=== PATIENT | female | born 1995 | race Caucasian/White ===

== ENCOUNTER 2021-05-08 09:41 | Outpatient (REF) | payer OTHER, SELFPAY ==
[2021-05-08 11:58] LABS: Hemoglobin 13.3 g/dl (12.0-16.0); Mean Corpuscular HGB Conc 32.4 g/dl (31.0-35.0); Mean Corpuscular Volume 89.3 fL (80-98); Mean Platelet Volume 12.5 fL (9.4-12.3); Platelet Count 216 X10*3/uL (160-400); Red Blood Count 4.59 X10*6/uL (4.20-5.50); Red Cell Distribution Width 13.3 % (11.0-16.0); White Blood Count 6.6 X10*3/uL (4.8-10.8)
[2021-05-08 12:24] LABS: Glucose Urine UA NEG (NEG); Leukocyte Esterase Urine NEG (NEG); Nitrite Urine NEG (NEG); Specific Gravity - Urine >= 1.030 (1.005-1.025); Urine Blood NEG (NEG); Urine Ketones NEG (NEG); Urine Protein NEG (NEG-TRACE)
[2021-05-08 12:27] LABS: Alanine Aminotransferase 30 U/L (0-31); Albumin Level 4.4 g/dL (3.5-5.0); Alkaline Phosphatase 50 U/L (39-117); Anion Gap 10 (12-20); Aspartate Amino Transferase 19 U/L (5-31); Bilirubin Total 0.5 mg/dL (0.0-1.0); Blood Urea Nitrogen 9 mg/dL (9-16); Calcium 9.5 mg/dL (8.4-10.2); Carbon Dioxide 26 mmol/L (22-29); Chloride 109 mmol/L (96-108); Cholesterol 172 mg/dL; Estimated Glomerular Filt Rate > 60; Glucose Fasting 91 mg/dL (60-99); HDL Cholesterol 46 mg/dL; LDL Cholesterol Calculated 113 mg/dl; Potassium 4.4 mmol/L (3.3-5.1); Sodium 141 mmol/L (135-145); Total Protein 7.2 g/dL (6.5-8.0); Triglycerides 68 mg/dL
[2021-05-08 12:29] LABS: Appearance Urine CLEAR; Color Urine YELLOW
[2021-05-08 12:37] LABS: RBC Urine 0 /HPF (0); Squamous Epithelial Cell Urine 1+ /LPF; WBC Urine 0-2 /HPF (0-4)
[2021-05-08 12:38] LABS: Mucus Urine TRACE /LPF
[2021-05-08 12:46] LABS: Syphilis Screen Nonreactive (Nonreactive)
[2021-05-09 11:33] LABS: CT PCR NOT DETECTED (Not Detect.); NG PCR NOT DETECTED (Not Detect.)
[2021-05-11 08:03] LABS: HBc Num1 0.09 S/CO (0.00-0.79); Hepatitis B Core Antibody Nonreactive (Nonreactive); ~HepC Num1 0.12 S/CO (0.00-0.79); ~Hepatitis C Antibody Nonreactive (Nonreactive)
[2021-05-11 08:26] LABS: HIV AB/AG Nonreactive (Nonreactive); HIV Num 1 0.08 S/CO (0.00-0.99)
[2021-05-13 20:47] LABS: HPV 16 RNA NOT DETECTED (NOT DETECTED); HPV mRNA E6/E7 rflx Detected (Not Detected)
== END 2021-05-08 09:42 | disposition home or self-care (01) ==
LOC: HO.LAB 09:41
PROVIDERS: PCP Internal Medicine; Visit Provider Advanced Practice Midwife
DX: Z01.411 Encounter for gynecological examination (general) (routine) with abnormal findings (principal); Z11.3 Encounter for screening for infections with a predominantly sexual mode of transmission; Z11.51 Encounter for screening for human papillomavirus (HPV); Z11.4 Encounter for screening for human immunodeficiency virus [HIV]; Z01.84 Encounter for antibody response examination; Z11.59 Encounter for screening for other viral diseases; R87.619 Unspecified abnormal cytological findings in specimens from cervix uteri; Z20.2 Contact with and (suspected) exposure to infections with a predominantly sexual mode of transmission
CPT/HCPCS: 36415; 80053; 80061; 81001; 85027; 86704; 86780; 86803; 87389; 87491; 87591; 87624; 87625; 88142

== ENCOUNTER → 2021-06-11 14:35 | Outpatient (BNVA) | payer OTHER, SELFPAY | PROVIDERS: PCP Internal Medicine; Visit Provider Obstetrics & Gynecology | DX: R87.610 Atypical squamous cells of undetermined significance on cytologic smear of cervix (ASC-US) (principal) | CPT/HCPCS: 57454 ==

== ENCOUNTER → 2021-06-24 13:54 | Outpatient (BNVA) | payer OTHER, SELFPAY | PROVIDERS: PCP Internal Medicine; Visit Provider Obstetrics & Gynecology | DX: N87.0 Mild cervical dysplasia (principal) | CPT/HCPCS: 99212 ==

== ENCOUNTER 2021-08-27 13:00 | Outpatient (RCR) | payer OTHER, SELFPAY ==
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
--- NOTE | 2021-08-28 08:03 | MHC.PT.DC ---
[facility] [place] [facility] [place] [facility] [place] Office [address] Shannon Vergara [address] [phone] F: [phone] F: [phone] F: [phone] F: [phone] Physical Therapy Discharge Report Diagnosis: This is a 26 yo female presenting to skilled PT with a script for cervicalgia. Date of Surgery: NA Date of Evaluation: 05/26/21 Date of Discharge: 08/27/21 Treatments to Date: 18 Cancellations to Date: 0 No Shows to Date: 0 Discharge Status: Achieved Goals Improved Function Independent with HEP Discharge Summary: 08/27: Patient demos normal ROM and strength. She has improved her pain and centralized symptoms. She is very compliant with HEP and has progressed band strength. She has ordered a tens unit for home use. She is I in her program and ready for DC. DC to HEP at this time. Electronically signed by: Neli Coffey PT Please sign and return to therapist. Thank you for your referral.
== END 2021-08-28 08:04 | disposition home or self-care (01) ==
LOC: HO.PTCHIC 13:00
PROVIDERS: PCP Internal Medicine; Visit Provider Internal Medicine
DX: M54.2 Cervicalgia (principal); M54.50 Low back pain, unspecified; G89.29 Other chronic pain
CPT/HCPCS: 88305; 97014; 97110; 97140; 97161; 97162

== ENCOUNTER 2021-09-26 10:19 | Outpatient (REF) | payer OTHER, SELFPAY ==
[2021-09-28 17:02] LABS: Rubeola IgG (Measles) >300.00 AU/mL
[2021-09-28 21:36] LABS: Rubella IgG Antibody 7.51 Index
== END 2021-09-26 10:20 | disposition home or self-care (01) ==
LOC: HO.LAB 10:19
PROVIDERS: PCP Internal Medicine; Visit Provider Internal Medicine
DX: Z00.00 Encounter for general adult medical examination without abnormal findings (principal)
CPT/HCPCS: 36415; 86735; 86762; 86765; 86787

== ENCOUNTER 2021-10-01 14:08 | Outpatient (REF) | payer OTHER, SELFPAY | END 2021-10-01 14:09 | disposition home or self-care (01) | LOC: HO.LAB 14:08 | PROVIDERS: PCP Internal Medicine; Visit Provider Internal Medicine | DX: Z13.89 Encounter for screening for other disorder (principal) ==

== ENCOUNTER 2021-10-08 11:44 | Outpatient (REF) | payer OTHER, SELFPAY | END 2021-10-08 11:45 | disposition home or self-care (01) | LOC: HO.LAB 11:44 | PROVIDERS: PCP Internal Medicine; Visit Provider Internal Medicine | DX: Z13.89 Encounter for screening for other disorder (principal) ==

== ENCOUNTER 2022-05-11 13:29 | Outpatient (REF) | payer OTHER, SELFPAY ==
[2022-05-11 17:42] LABS: CT PCR NOT DETECTED (Not Detect.); NG PCR NOT DETECTED (Not Detect.)
[2022-05-12 05:34] LABS: HBc Num1 0.09 S/CO (0.00-0.79); HIV AB/AG Nonreactive (Nonreactive); HIV Num 1 0.06 S/CO (0.00-0.99); Hepatitis B Core Antibody Nonreactive (Nonreactive); ~HepC Num1 0.05 S/CO (0.00-0.79); ~Hepatitis C Antibody Nonreactive (Nonreactive)
[2022-05-12 06:00] LABS: Syphilis Screen Nonreactive (Nonreactive)
[2022-05-17 22:46] LABS: HPV 16 RNA NOT DETECTED (NOT DETECTED); HPV mRNA E6/E7 rflx Detected (Not Detected)
== END 2022-05-11 13:30 | disposition home or self-care (01) ==
LOC: HO.LAB 13:29
PROVIDERS: PCP Internal Medicine; Visit Provider Advanced Practice Midwife
DX: Z01.411 Encounter for gynecological examination (general) (routine) with abnormal findings (principal); Z11.51 Encounter for screening for human papillomavirus (HPV); Z11.4 Encounter for screening for human immunodeficiency virus [HIV]; R87.610 Atypical squamous cells of undetermined significance on cytologic smear of cervix (ASC-US); Z20.2 Contact with and (suspected) exposure to infections with a predominantly sexual mode of transmission
CPT/HCPCS: 36415; 86704; 86780; 86803; 87389; 87491; 87591; 87624; 87625; 88142

== ENCOUNTER 2025-08-27 15:41 | Outpatient (AMB) | payer OTHER, SELFPAY ==
--- NOTE | 2025-08-27 14:56 | MHC.PC.OV ---
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 Cost Required: No Accompanied by: Spouse Allergies amoxicillin (AMOXICILLIN) Allergy (Intermediate, Verified 08/27/25 14:56) hives Tobacco use date assessed: 08/27/25 Dental Screening Dental Screen Date: 08/27/25 Did you have a dental visit in the last 12 months?: Yes Did you have a dental problem in the last 6 months where you did not have access to dental care?: No Was dental information given to patient?: Patient has dentist HPI HPI Comments History of Present Illness Details The patient is a 30-year-old female presenting for an annual physical examination and to discuss hand and wrist numbness. The patient reports numbness in her hands and wrists, which began in 2020 when she started working from home and typing constantly. The numbness primarily affects her thumb and two adjacent fingers, with the sensation running up to her elbow. She notes symptoms are worse before bed and when texting. The patient meets the criteria for mild depression, with a PHQ-4 score of 4, and mild anxiety. She is currently receiving therapy and has a history of taking sertraline for depression and prazosin for nightmares, but is not currently on these medications. Additionally, the patient has experienced weight fluctuations since having her daughter, with periods of losing 5 to 10 pounds rapidly and then regaining it. She was previously on control but discontinued it after losing her health insurance. The patient has no other known medical conditions and has never had surgery. Her family history is positive for breast cancer in her maternal aunt and diabetes on her father's side. She uses cannabis recreationally and drinks alcohol on social occasions about one to two times a month. She denies current cigarette use but smoked in high school about 10 years ago. Medical History: - Mild depression, with a PHQ-4 score of 4. - Mild anxiety. - History of depression previously treated with sertraline. - History of nightmares previously treated with prazosin. - Recent common cold with sinus and chest issues. Surgical History: - No history of surgeries. Medications: - The patient is not currently taking any medications. - Past use of sertraline for depression and prazosin for nightmares. Family History: - Maternal aunt with breast cancer. - Diabetes on father's side. Diagnostic Results: - PHQ-4 score of 4, indicating mild depression. Social History: - Occupation: Works from home and is constantly typing on a computer. - Substance Use: Uses cannabis recreationally. - Alcohol Use: Drinks socially one to two times per month, consuming one or two drinks per occasion. - Tobacco Use: Denies current use; smoked in high school approximately 10 years ago. - Housing: Reports having a safe and comfortable place to stay. - Diet: Typically eats breakfast and dinner with snacks in between, but does not eat lunch. PENDING SALE TO [facility] Medical History (Updated 08/27/25 @ 16:01 by Franck Bourgeois MD) Depression with anxiety Hand numbness Annual physical exam Obesity (BMI 30-39.9) Abnormal Pap smear of cervix Neck pain Chronic bilateral low back pain Family History Father No problems noted. 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 1. Little interest or pleasure in doing things: several days 2. Feeling down, depressed, or hopeless: several days 3. Trouble falling or staying asleep, or sleeping too much: not at all 4. Feeling tired or having little energy: several days 5. Poor appetite or overeating: not at all 6. Feeling bad about yourself - or that you are a failure or have let yourself or your family down: several days 7. Trouble concentrating on things, such as reading the newspaper or watching television: not at all 8. Moving or speaking so slowly that other people could have noticed. Or the opposite - being so fidgety or restless that you have been moving around a lot more than usual: not at all 9. Thoughts that you would be better off or of hurting yourself in some way: not at all Total score: 4 Depression Screening Interpretation: Positive Depression Screening Done: Yes 53885 - PHQ-9 Billing: Yes Source: Developed by Drs. Brenden Hamilton, Trini Castillo, Jayy Hines and colleagues, with an educational blaze from [employer]. Thrive Questionnaire Date Thrive assessed: 05/05/21 AUDIT C Alcohol Use Questionnaire (AUDIT-C) 1. How often do you have a drink containing alcohol?: 2-4 times a month 2. How many drinks containing alcohol do you have on a typical day when you are drinking?: 1 or 2 3. How often do you have six or more drinks on one occasion?: Never Total Score: 2 Score Reviewed/Action Taken: Yes MIRIAM-7 AMB Questionnaire MIRIAM-7 Date MIRIAM - 7 assessed: 08/27/25 Feeling nervous, anxious, or on edge: 1 = Several days Not being able to stop or control worryin = Several days Worrying too much about different things: 1 = Several days Trouble relaxin = Several days Being so restless that it is hard to sit still: 0 = Not at all Becoming easily annoyed or irritable: 1 = Several days Feeling afraid as if something awful might happen: 0 = Not at all Total MIRIAM-7 score (0-4 normal; 5-9 mild; 10-14 moderate; 15-21 severe): 5 Source: Developed by Drs. Brenden Hamilton, Trini Castillo, Jayy Hines and colleagues, with an educational blaze from [employer]. MIRIAM-7 Assessment Billing MIRIAM-7 Assessment Tool: MIRIAM-7 Assessment 34959 Review of Systems Narrative - Gastrointestinal: Reports nausea upon waking recently, which she attributes to her menstrual cycle starting today. - Denies vomiting. - Reports normal urination and defecation. - Neurological: Reports numbness in her thumb and two fingers that radiates to the elbow. - Denies headaches or vision changes. - Respiratory: Reports resolving sinus and chest issues from a recent cold. - Denies shortness of breath. - Cardiovascular: Denies chest pain. All systems reviewed & are unremarkable except as reviewed in HPI and above Physical exam (Primary Care) Vital Signs: Last Vital Signs Temp 97.8 F 08/27/25 15:47 Pulse 79 08/27/25 15:47 Resp 18 08/27/25 15:47 BP 110/72 08/27/25 15:47 Pulse Ox 97 08/27/25 15:47 Oxygen Delivery Method Room Air 08/27/25 15:47 BMI result Body Mass Index 35.6 Tobacco/Smoking Status: Tobacco use Status Tobacco use date assessed 08/27/25 08/27/25 15:49 Patient Tobacco Use Status Former Tobacco user 08/27/25 15:49 e-Cigarette/Vaping Use Never Used 08/27/25 15:49 PHQ-9: PHQ-9 Score PHQ-9: Total score 4 08/27/25 15:54 Depression Screening Interpretation: Positive Thrive Assessment: Date of Thrive Assessment Date Thrive assessed 05/05/21 08/27/25 14:57 Narrative General: Alert and oriented, Well nourished, No acute distress. Eye: Pupils are equal, round and reactive to light, Intact accommodation, Extraocular movements are intact, Normal conjunctiva, Vision unchanged. HENT: Normocephalic, Atraumatic, Tympanic membranes are clear, Normal hearing, Oral mucosa is moist, No pharyngeal erythema, Ear canals patent. Respiratory: Lungs CTA bilaterally, No wheeze, Respirations are non-labored. Cardiovascular: Regular rate, Regular rhythm, S1 auscultated, S2 auscultated, No murmur, Good pulses equal in all extremities, Normal peripheral perfusion, No edema. Gastrointestinal: Soft, Non-tender, Non-distended, Normal bowel sounds, No organomegaly. Musculoskeletal: Normal range of motion, Normal strength, No tenderness, No swelling, No deformity, Normal gait. Integumentary: Warm, Dry, [place], Intact. Neurologic: Alert, Oriented, Normal sensory, Normal motor function, No focal defects, Cranial Nerves II-XII are grossly intact, Normal deep tendon reflexes. Psychiatric: Cooperative, Appropriate mood & affect, Normal judgment. Mild depression and mild anxiety noted. Coding Level of Care Code New Pt Level 3 (76179) New Pt Prev Care 18-39yr(85181 Diagnoses Hand numbness R20.0 Depression with anxiety F41.8 Annual physical exam Z00.00 Additional Codes MIRIAM-7 Assessment Billing - MIRIAM-7 Assessment Tool: MIRIAM-7 Assessment 69967 ([id number]) PHQ-9 - 36228 - PHQ-9 Billing: Yes ([id number]) Comment [id number] Assessment & Plan Assessment & Plan (1) Hand numbness: Comment: - The patient's symptoms are consistent with carpal tunnel syndrome, likely related to her occupation involving frequent typing. - She was advised to use a carpal tunnel brace, which can be obtained from a pharmacy, and to maintain proper ergonomic hand positioning. - If weakness or muscle wasting develops, she will be referred to an orthopedic surgeon. Code(s): R20.0 - Anesthesia of skin Category: Medical (2) Depression with anxiety: Comment: - The patient's PHQ-4 score of 4 indicates mild depression, and she also meets criteria for mild anxiety. - She is already engaged in therapy, and it is recommended she continue with this treatment. Code(s): F41.8 - Other specified anxiety disorders Category: Medical (3) Annual physical exam: Comment: - The patient's visit served as her annual physical. - Her BMI is slightly elevated. - Counseling was provided on healthy eating and staying active. - COVID and flu shots were recommended. - A comprehensive set of bloodwork, including CBC, electrolytes, glucose, cholesterol, thyroid, vitamin D, hepatitis, and syphilis screening, was ordered. - The patient is due for a Pap smear and was advised to complete it during her upcoming TECHNICIAN[facility]S HELPER appointment in October. - Follow-up is planned in one year for her next annual physical. - She will be contacted through the patient portal regarding any abnormal lab results. Code(s): Z00.00 - Encounter for general adult medical examination without abnormal findings Category: Medical Plan: Health Maintenance: - Counseling on healthy eating, watching diet, and being active for weight management. - Recommended COVID-19 and influenza vaccinations. - Ordered comprehensive blood work including CBC, electrolytes, glucose, cholesterol, thyroid, vitamin D, hepatitis, and syphilis testing. - The patient is due for a Pap smear and will follow up with her TECHNICIAN'S HELPER in October for screening. - Advised to use cannabis in moderation. - Follow-up scheduled for an annual physical in one year. Patient was informed and verbally consented to the use of an ambient scribe for clinic note documentation during this visit. Vital signs reviewed. Comprehensive history, review of systems, and physical exam completed. Medications, allergies, and problem list reviewed and updated. Counseling provided on nutrition, regular exercise, sleep hygiene, and moderation of alcohol use. Discussed age-appropriate screenings (mammogram, colonoscopy, Pap, bone density) and immunizations (flu, COVID, shingles, Tdap). Screened for depression, fall risk, and home safety; no current concerns. Discussed stress management, dental and vision care, and importance of ongoing preventive follow-up. Routine labs ordered for metabolic and lipid screening. Patient educated on healthy lifestyle and agrees with the plan. Plan I explained to the patient that the numbness in her hand is likely carpal tunnel syndrome, caused by a compressed nerve from repetitive motions like typing. I recommended she purchase a carpal tunnel brace and focus on proper ergonomics, and informed her that a referral to an orthopedic surgeon would be necessary if she develops weakness or muscle wasting. We discussed her mental health, noting that her current treatment with therapy for mild depression and anxiety is appropriate. Regarding her weight fluctuations, I counseled her on the importance of regular exercise and healthy eating. I have ordered a comprehensive panel of blood work to establish a baseline. I also informed her that she is due for a Pap smear and she should have this done at her upcoming [facility]CHNIC[facility]'S HEL[facility] appointment in October. I advised her that I will contact her via the patient portal if any lab results are abnormal and that she should return in one year for her next annual physical. Orders: Orders Hepatitis A,B,C Profile Today Z00.00 - Encounter for general adult medical examination without abnormal findings Microalbumin, Random (w Creat) Today Z00.00 - Encounter for general adult medical examination without abnormal findings Complete Blood Count Auto Diff Today Z00.00 - Encounter for general adult medical examination without abnormal findings Comprehensive Met. Panel Today Z00.00 - Encounter for general adult medical examination without abnormal findings Hemoglobin A1c Today Z00.00 - Encounter for general adult medical examination without abnormal findings HIV Ab/Ag Today Z00.00 - Encounter for general adult medical examination without abnormal findings Lipid Panel Today Z00.00 - Encounter for general adult medical examination without abnormal findings Syphilis Screen Today Z00.00 - Encounter for general adult medical examination without abnormal findings TSH reflex Free T4 Today Z00.00 - Encounter for general adult medical examination without abnormal findings Vitamin D 25-OH Total Today Z00.00 - Encounter for general adult medical examination without abnormal findings Patient Instructions: - Purchase a carpal tunnel brace from a pharmacy and wear it to alleviate hand and wrist numbness, especially at night. - Make sure your hands are positioned correctly and ergonomically when you are typing. - Continue working with your therapist for your depression and anxiety. - Focus on maintaining a healthy diet and getting regular exercise. - Get your annual flu shot and a COVID-19 vaccine. - Please go to the lab to have the ordered blood tests done. - Make sure to get your Pap smear done at your TECHNIC[facility]S HEL[facility] appointment in October. - Use cannabis in moderation. - Please schedule a follow-up appointment for your next annual physical in one year.
[2025-08-27 15:47] VITALS: BP 110/72; PULSE 79; RESP 18; TEMP 36.6; O2SAT 97; BMI 35.6
== END 2025-08-27 16:24 | disposition home or self-care (01) ==
LOC: HO.HMCHD 15:41
PROVIDERS: PCP Student in an Organized Health Care Education/Training Program; Visit Provider Student in an Organized Health Care Education/Training Program
DX: Z00.00 Encounter for general adult medical examination without abnormal findings (principal); R20.0 Anesthesia of skin; F41.8 Other specified anxiety disorders

== ENCOUNTER 2025-08-27 15:41 | Outpatient (REF) | payer OTHER, SELFPAY ==
[2025-08-27 16:46] LABS: MANUAL DIFF FLAG NO
[2025-08-27 17:13] LABS: Hematocrit 43.3 % (37.0-47.0); Hemoglobin 14.2 g/dl (12.0-16.0); Imm Gran Abs Auto 0.02 X10*3/uL (0.00-0.03); Imm Gran Pct Auto 0.3 % (0.0-0.4); Lymphocytes Absolute Auto 2.8 X10*3/uL (1.2-4.9); Mean Corpuscular HGB Conc 32.8 g/dl (31.0-35.0); Mean Corpuscular Hemoglobin 30.1 pg (27.0-33.0); Mean Corpuscular Volume 91.7 fL (80.0-98.0); NRBC Abs Auto 0.000 X10*3/uL (0.0-0.012); NRBC Pct Auto 0.0 /100WBC (0.0-0.2); Platelet Count 168 X10*3/uL (160-400); Red Blood Count 4.72 X10*6/uL (4.20-5.50); White Blood Count 7.5 X10*3/uL (4.8-10.8)
[2025-08-27 17:54] LABS: Alanine Aminotransferase 40 U/L (0-31); Albumin Level 4.8 g/dL (3.5-5.0); Alkaline Phosphatase 43 U/L (39-117); Anion Gap 12 (12-20); Aspartate Amino Transferase 28 U/L (5-31); Blood Urea Nitrogen 11 mg/dL (9-16); Calcium 9.5 mg/dL (8.4-10.2); Carbon Dioxide 26 mmol/L (22-29); Chloride 108 mmol/L (96-108); Cholesterol 189 mg/dL (<200); Estimated Glomerular Filt Rate > 60; HDL Cholesterol 43 mg/dL (>40); Potassium 4.3 mmol/L (3.3-5.1); Sodium 142 mmol/L (135-145); Total Protein 7.2 g/dL (6.5-8.0); Triglycerides 224 mg/dL (<150)
[2025-08-27 18:58] LABS: Microalbum/Creatinine Ratio Ur 10.8 ug/mg cr (<30)
[2025-08-28 06:51] LABS: Syphilis Screen Nonreactive (Nonreactive)
[2025-08-28 07:04] LABS: HBS Num1 563.05 mIU/mL (0-7.99); HBc Num1 0.12 S/CO (0.00-0.79); HBsAGNum1 0.40 S/CO (0.00-0.99); HIV Num 1 0.06 S/CO (0.00-0.99); Hepatitis A Antibody IgM 0.26 Index (0-0.79); Hepatitis B Surface Antigen Negative (Negative); ~HepC Num1 0.12 S/CO (0.00-0.79); ~Hepatitis A Antibody IgM Nonreactive (Nonreactive); ~Hepatitis B Surface Antibody REACTIVE (Nonreactive); ~Hepatitis C Antibody Nonreactive (Nonreactive)
== END 2025-08-27 15:42 | disposition home or self-care (01) ==
LOC: HO.LAB 15:41
PROVIDERS: PCP Student in an Organized Health Care Education/Training Program; Visit Provider Student in an Organized Health Care Education/Training Program
DX: Z00.00 Encounter for general adult medical examination without abnormal findings (principal); R20.0 Anesthesia of skin; F32.A Depression, unspecified; F41.8 Other specified anxiety disorders; Z13.1 Encounter for screening for diabetes mellitus; Z87.891 Personal history of nicotine dependence
CPT/HCPCS: 36415; 80053; 80061; 82043; 82306; 82570; 83036; 84443; 85025; 86704; 86706; 86709; 86780; 86803; 87340; 87389; 96127